=== PATIENT | female | born 1950 | race Caucasian/White ===

== ENCOUNTER 2017-07-15 21:28 | Inpatient (IN) ==
[2017-07-15] MEDS ORDERED: hydrALAZINE 20 MG/1 ML VIAL IV STA (22:16)
[2017-07-15] MEDS ORDERED: fentaNYL 100 MCG/2 ML VIAL IV STA (22:16)
[2017-07-15] MEDS ORDERED: ALBUTEROL/IPRATROPIUM 3 ML NEB RESP TX STA (22:16)
[2017-07-15] MEDS ORDERED: ONDANSETRON 4 MG/2 ML VIAL IV STA (22:16)
[2017-07-15] MEDS ORDERED: methylPREDNISolone SOD SUC 125 MG/2 ML VIAL IV STA (22:16)
[2017-07-15 23:02] LABS: Basophils # 0.1 10*3/uL (0.0-0.2); Basophils % 0.7 % (0.0-0.8); Eosinophils # 0.1 10*3/uL (0.0-0.87); Eosinophils % 0.6 % (0.00-10.9); Hematocrit 40.9 VOL% (35.7-47.0); Hemoglobin 14.2 GM/DL (12.0-16.0); Immature Granulocytes % 0.4 %; Immature Granulocytes Absolute 0.03 #; Lymphocytes # 1.8 10*3/uL (1.4-4.0); Lymphocytes % 22.2 % (21.3-54.2); Mean Corpuscular HGB Conc 34.7 GM/DL (32-36); Mean Corpuscular Hemoglobin 31 PG (27-34); Mean Corpuscular Volume 89.3 FL (87-102); Mean Platelet Volume 10.6 FL (9.6-12.0); Monocytes # 0.5 10*3/uL (0.11-0.8); Monocytes % 5.7 % (1.7-12.7); Neutrophils # 5.8 10*3/uL (1.4-7.4); Neutrophils % 70.4 % (38.7-73.9); Platelet Count 209 T/CUMM (130-400); Red Blood Count 4.58 MC/CUMM (3.8-5.5); Red Cell Distribution Width 13.1 % (9.3-17.3); White Blood Count 8.2 T/CUMM (4-12)
[2017-07-15 23:10] LABS: INR 0.9
[2017-07-15] MEDS ORDERED: MEPERIDINE 50 MG/1 ML VIAL ONE (23:40)
[2017-07-15 23:44] LABS: Calcium 9.6 MG/DL (8.5-10.1)
[2017-07-15 23:45] LABS: Alanine Aminotransferase 22 U/L (13-56); Albumin 4.1 G/DL (3.4-5.0); Alkaline Phosphatase 105 U/L (45-117); Aspartate Amino Transferase 19 U/L (0-37); Bilirubin,Total 0.85 MG/DL (0.2-1.0); Blood Urea Nitrogen 6 MG/DL (7-18); Glucose 83 MG/DL (74-106); Osmolality,Calculated 269.8 MOS/KG (273-304); Sodium 137 MMOL/L (136-145); Total Protein 8.3 G/DL (6.4-8.3)
[2017-07-16 00:14] LABS: Sedimentation Rate-Westergren 38 MM/HR (0-30)
[2017-07-16] MEDS ORDERED: MEPERIDINE 50 MG/1 ML VIAL IV STA (01:08)
[2017-07-16] MEDS ORDERED: ONDANSETRON 4 MG/2 ML VIAL IV STA (01:08)
[2017-07-16] MEDS ORDERED: LACTULOSE 20 GM/30 ML UDCUP PO PRN (02:05)
[2017-07-16] MEDS ORDERED: ONDANSETRON 4 MG/2 ML VIAL IV PRN (02:05)
[2017-07-16] MEDS ORDERED: ALBUTEROL/IPRATROPIUM 3 ML NEB RESP TX PRN (02:05)
[2017-07-16] MEDS ORDERED: ACETAMINOPHEN 325 MG TABLET PO PRN (02:05)
[2017-07-16] MEDS ORDERED: ALBUTEROL 2.5 MG/3 ML NEB RESP TX PRN (02:05)
[2017-07-16] MEDS ORDERED: MECLIZINE 25 MG TABLET PO PRN (02:05)
[2017-07-16] MEDS ORDERED: MEPERIDINE 50 MG/1 ML VIAL IV PRN (02:05)
[2017-07-16] MEDS ORDERED: LEVOFLOXACIN INJ 500 MG in PREMIX 1 EACH IV SCH (03:00)
[2017-07-16] MEDS: oxyCODONE/ACETAMINOPHEN 5-325 MG TABLET PO PRN ×2 (03:02→08:40)
[2017-07-16] MEDS: SODIUM CHLORIDE 0.9% 1,000 ML IV SCH (03:13)
[2017-07-16] MEDS: PSEUDOEPHEDRINE 30 MG TABLET PO SCH (08:39)
[2017-07-16] MEDS: methylPREDNISolone SOD SUC 40 MG/1 ML VIAL IV SCH ×2 (08:41→17:38)
[2017-07-16] MEDS: ENOXAPARIN 40 MG/0.4 ML SYRINGE SUBCUT SCH (08:41)
[2017-07-16] MEDS: PANTOPRAZOLE 40 MG TABLET PO SCH (08:48)
[2017-07-16] MEDS: DOCUSATE SODIUM 100 MG CAPSULE PO SCH ×2 (08:49→21:01)
[2017-07-16] MEDS ORDERED: LORATADINE 10 MG TABLET PO SCH (09:00)
[2017-07-16 09:06] LABS: Basophils % 0.3 % (0.0-0.8); Hematocrit 37.5 VOL% (35.7-47.0); Hemoglobin 13.5 GM/DL (12.0-16.0); Immature Granulocytes % 0.6 %; Immature Granulocytes Absolute 0.05 #; Lymphocytes # 0.7 10*3/uL (1.4-4.0); Lymphocytes % 7.5 % (21.3-54.2); Mean Corpuscular Hemoglobin 32 PG (27-34); Mean Corpuscular Volume 87.4 FL (87-102); Mean Platelet Volume 11.1 FL (9.6-12.0); Monocytes # 0.1 10*3/uL (0.11-0.8); Monocytes % 0.7 % (1.7-12.7); Neutrophils # 7.9 10*3/uL (1.4-7.4); Neutrophils % 90.9 % (38.7-73.9); Platelet Count 207 T/CUMM (130-400); Red Blood Count 4.29 MC/CUMM (3.8-5.5); Red Cell Distribution Width 13.3 % (9.3-17.3); White Blood Count 8.7 T/CUMM (4-12)
[2017-07-16 09:36] LABS: Band Neutrophils 1 % (0-10); Eosinophils 1 % (0-10); Hypochromasia Slight; Lymphocytes 5 % (20-55); Platelet Estimate Adequate; Segmented Neutrophils 92 % (50-85); Total Cells Counted 100
[2017-07-16 09:46] LABS: Albumin 3.5 G/DL (3.4-5.0); Bilirubin,Total 0.5 MG/DL (0.2-1.0); Calcium 8.9 MG/DL (8.5-10.1); Osmolality,Calculated 276.5 MOS/KG (273-304); Potassium 3.9 MMOL/L (3.5-5.1); Risk Ratio 4.82; Total Protein 7.6 G/DL (6.4-8.3); VLDL CHOLESTEROL 16.2 MG/DL
[2017-07-16] MEDS ORDERED: cloNIDine 0.1 MG TABLET PO SCH (12:00)
[2017-07-16] MEDS: ALBUTEROL/IPRATROPIUM 3 ML NEB RESP TX SCH ×2 (12:44→19:09)
[2017-07-16] MEDS: BUDESONIDE 0.25 MG/2 ML NEB RESP TX SCH (12:44)
[2017-07-16] MEDS: KETOROLAC 15 MG/1 ML VIAL IV SCH ×2 (13:15→17:40)
[2017-07-16] MEDS: LIDOCAINE 5% PATCH TRANSDERM SCH (13:15)
[2017-07-16] MEDS: NICOTINE 21 MG/24 HR PATCH TRANSDERM SCH (13:15)
[2017-07-16] MEDS: CLINDAMYCIN INJ 300 MG in PREMIX 1 EACH IV SCH ×2 (13:17→17:42)
[2017-07-16] MEDS: AZITHROMYCIN INJ 250 MG in SODIUM CHLORIDE 0.9% 250 ML IV SCH (15:04)
[2017-07-16] MEDS ORDERED: KETOROLAC 15 MG/1 ML VIAL IV ONE (21:00)
[2017-07-16] MEDS: cloNIDine 0.1 MG TABLET PO SCH (21:04)
[2017-07-17] MEDS: CLINDAMYCIN INJ 300 MG in PREMIX 1 EACH IV SCH ×4 (00:53→18:40)
[2017-07-17] MEDS: ALBUTEROL/IPRATROPIUM 3 ML NEB RESP TX SCH ×4 (02:30→19:17)
[2017-07-17] MEDS: KETOROLAC 15 MG/1 ML VIAL IV SCH ×4 (03:02→20:27)
[2017-07-17] MEDS: methylPREDNISolone SOD SUC 40 MG/1 ML VIAL IV SCH ×3 (03:02→17:18)
[2017-07-17] MEDS: SODIUM CHLORIDE 0.9% 1,000 ML IV SCH (03:03)
[2017-07-17 05:59] LABS: Calcium 8.5 MG/DL (8.5-10.1); Osmolality,Calculated 270.1 MOS/KG (273-304)
[2017-07-17] MEDS: BUDESONIDE 0.25 MG/2 ML NEB RESP TX SCH (07:10)
[2017-07-17] MEDS: oxyCODONE/ACETAMINOPHEN 5-325 MG TABLET PO PRN (07:52)
[2017-07-17] MEDS: PANTOPRAZOLE 40 MG TABLET PO SCH (09:34)
[2017-07-17] MEDS: DOCUSATE SODIUM 100 MG CAPSULE PO SCH ×2 (09:35→20:26)
[2017-07-17] MEDS: LORATADINE 10 MG TABLET PO SCH (09:35)
[2017-07-17] MEDS: cloNIDine 0.1 MG TABLET PO SCH ×3 (09:35→20:26)
[2017-07-17] MEDS: NICOTINE 21 MG/24 HR PATCH TRANSDERM SCH (09:35)
[2017-07-17] MEDS: LIDOCAINE 5% PATCH TRANSDERM SCH (09:36)
[2017-07-17] MEDS: ENOXAPARIN 40 MG/0.4 ML SYRINGE SUBCUT SCH (09:37)
[2017-07-17] MEDS: PSEUDOEPHEDRINE 30 MG TABLET PO SCH ×3 (10:22→20:31)
[2017-07-17] MEDS ORDERED: TRIAMCINOLONE ACETONIDE 40 MG/1 ML VIAL MISC INJ ONE (11:17)
[2017-07-17] MEDS ORDERED: LIDOCAINE 1% 20 ML VIAL MISC INJ ONE (11:18)
[2017-07-17] MEDS ORDERED: BUPIVACAINE 0.25% 50 ML VIAL MISC INJ ONE (11:20)
[2017-07-17] MEDS ORDERED: DEXAMETHASONE 10 MG/1 ML VIAL ONE (11:51)
[2017-07-17] MEDS: AZITHROMYCIN INJ 250 MG in SODIUM CHLORIDE 0.9% 250 ML IV SCH (14:32)
[2017-07-17] MEDS ORDERED: ZALEPLON 5 MG CAPSULE PO ONE (21:00)
[2017-07-18] MEDS: methylPREDNISolone SOD SUC 40 MG/1 ML VIAL IV SCH ×2 (00:01→10:19)
[2017-07-18] MEDS: CLINDAMYCIN INJ 300 MG in PREMIX 1 EACH IV SCH ×3 (00:03→11:57)
[2017-07-18] MEDS: ALBUTEROL/IPRATROPIUM 3 ML NEB RESP TX SCH ×3 (00:17→14:00)
[2017-07-18] MEDS: SODIUM CHLORIDE 0.9% 1,000 ML IV SCH (01:11)
[2017-07-18] MEDS: KETOROLAC 15 MG/1 ML VIAL IV SCH ×2 (03:36→10:22)
[2017-07-18] MEDS: PSEUDOEPHEDRINE 30 MG TABLET PO SCH ×2 (03:38→10:37)
[2017-07-18] MEDS: BUDESONIDE 0.25 MG/2 ML NEB RESP TX SCH (07:05)
[2017-07-18] MEDS ORDERED: FLUCONAZOLE 150 MG TABLET PO ONE (08:55)
[2017-07-18] MEDS ORDERED: oxyCODONE/ACETAMINOPHEN 5-325 MG TABLET PO PRN (08:58)
[2017-07-18] MEDS ORDERED: CLORAZEPATE 7.5 MG TABLET PO SCH (09:00)
[2017-07-18] MEDS ORDERED: SERTRALINE 50 MG TABLET PO SCH (09:00)
[2017-07-18] MEDS: PANTOPRAZOLE 40 MG TABLET PO SCH (10:10)
[2017-07-18] MEDS: LORATADINE 10 MG TABLET PO SCH (10:10)
[2017-07-18] MEDS: DOCUSATE SODIUM 100 MG CAPSULE PO SCH (10:11)
[2017-07-18] MEDS: cloNIDine 0.1 MG TABLET PO SCH (10:11)
[2017-07-18] MEDS: NICOTINE 21 MG/24 HR PATCH TRANSDERM SCH (10:15)
[2017-07-18] MEDS: ENOXAPARIN 40 MG/0.4 ML SYRINGE SUBCUT SCH (10:27)
[2017-07-18 15:48] VITALS: BP 132/51
[2017-07-18] MEDS: AZITHROMYCIN INJ 250 MG in SODIUM CHLORIDE 0.9% 250 ML IV SCH (16:00)
[2017-07-18] MEDS: LIDOCAINE 5% PATCH TRANSDERM SCH (16:00)
== END 2017-07-18 15:35 | disposition home or self-care (01) | DRG 74 ==
LOC: N.ED 21:28 → N.EDINP 07-16 00:43 → N.4E 07-16 01:23
PROVIDERS: ADMIT Family Medicine; ATTEND Family Medicine

== ENCOUNTER 2018-02-11 05:12 | Inpatient (IN) ==
[2018-02-11 05:44] LABS: Basophils # 0.1 10*3/uL (0.0-0.2); Basophils % 0.6 % (0.0-0.8); Eosinophils # 0.1 10*3/uL (0.0-0.87); Eosinophils % 0.6 % (0.00-10.9); Hematocrit 32.2 VOL% (35.7-47.0); Hemoglobin 11.2 GM/DL (12.0-16.0); Immature Granulocytes % 0.4 %; Immature Granulocytes Absolute 0.04 #; Lymphocytes # 1.3 10*3/uL (1.4-4.0); Lymphocytes % 14.2 % (21.3-54.2); Mean Corpuscular HGB Conc 34.8 GM/DL (32-36); Mean Corpuscular Hemoglobin 31 PG (27-34); Mean Platelet Volume 10.3 FL (9.6-12.0); Monocytes # 0.7 10*3/uL (0.11-0.8); Monocytes % 7.6 % (1.7-12.7); Neutrophils # 7.2 10*3/uL (1.4-7.4); Neutrophils % 76.6 % (38.7-73.9); Platelet Count 195 T/CUMM (130-400); Red Blood Count 3.66 MC/CUMM (3.8-5.5); Red Cell Distribution Width 13.6 % (9.3-17.3); White Blood Count 9.4 T/CUMM (4-12)
[2018-02-11] MEDS ORDERED: LEVOFLOXACIN INJ 750 MG in PREMIX 1 EACH IV STA (06:09)
[2018-02-11] MEDS ORDERED: ALBUTEROL 2.5 MG/3 ML NEB RESP TX STA (06:19)
[2018-02-11 06:21] LABS: Albumin 3.7 G/DL (3.4-5.0); Calcium 8.5 MG/DL (8.5-10.1); Osmolality,Calculated 268.2 MOS/KG (273-304); Potassium 3.6 MMOL/L (3.5-5.1); Total Protein 7.7 G/DL (6.4-8.3)
[2018-02-11] MEDS ORDERED: ACETAMINOPHEN 500 MG TABLET PO STA (06:24)
[2018-02-11] MEDS ORDERED: ACETAMINOPHEN 325 MG TABLET PO PRN (06:52)
[2018-02-11] MEDS ORDERED: ALBUTEROL 2.5 MG/3 ML NEB RESP TX PRN (06:54)
[2018-02-11] MEDS ORDERED: LEVOFLOXACIN INJ 500 MG in PREMIX 1 EACH IV SCH (07:00)
[2018-02-11] MEDS ORDERED: ENOXAPARIN 40 MG/0.4 ML SYRINGE SUBCUT SCH (07:00)
[2018-02-11] MEDS: SODIUM CHLORIDE 0.45% 1,000 ML IV SCH ×3 (07:55→22:59)
[2018-02-11] MEDS: methylPREDNISolone SOD SUC 40 MG/1 ML VIAL IV SCH ×3 (07:57→23:10)
[2018-02-11] MEDS ORDERED: PROPOFOL 1,000 MG/100 ML BOTTLE IV ONE (08:29)
[2018-02-11] MEDS ORDERED: LOSARTAN 50 MG TABLET PO SCH (09:00)
[2018-02-11] MEDS ORDERED: PANTOPRAZOLE 40 MG TABLET PO SCH (09:00)
[2018-02-11] MEDS ORDERED: CLORAZEPATE 7.5 MG TABLET PO SCH (09:00)
[2018-02-11] MEDS ORDERED: AMIODARONE INJ 300 MG in DEXTROSE 5% 100 ML IV ONE (09:06)
[2018-02-11] MEDS ORDERED: AMIODARONE INJ 450 MG in DEXTROSE 5% 241 ML IV SCH ×2 (09:30→15:30)
[2018-02-11] MEDS ORDERED: AMIODARONE 450 MG/9 ML VIAL IV ONE (09:41)
[2018-02-11 09:53] LABS: ABG Base Excess -9.8 MMOL/L (-2.5-2.5); ABG HCO3 16.7 MMOL/L (20-26); ABG PCO2 30.1 MM HG (35-48); ABG PH 7.316 (7.35-7.45); ABG TCO2 13.8 MMOL/L (23-27); Allen Test Positive; Pt O2 Delivery Device Ventilator
[2018-02-11] MEDS: PROPOFOL 1,000 MG/100 ML BOTTLE IV SCH ×2 (10:00→19:53)
[2018-02-11] MEDS: DOCUSATE SODIUM 100 MG CAPSULE PO SCH ×2 (10:53→21:06)
[2018-02-11] MEDS: LORATADINE 10 MG TABLET PO SCH (11:04)
[2018-02-11] MEDS: SERTRALINE 50 MG TABLET PO SCH (11:04)
[2018-02-11] MEDS: cefTRIAXone 1,000 MG in SYRINGE 1 EACH IV SCH (11:09)
[2018-02-11] MEDS: PANTOPRAZOLE 40 MG VIAL IV SCH (11:10)
[2018-02-11 12:31] LABS: Apearance,Urine CLOUDY (Clear); Bacteria,Urine Few /HPF (Few); Bilirubin,Urine Negative (Negative); Blood, Urine Moderate mg/dL (Negative); Glucose,Urine (UA) Negative (Negative); Hyaline Casts,Urine 26 /LPF (0-3); Ketones,Urine Negative (Negative); Mucus,Urine Few /LPF (Occasional); Nitrite,Urine Negative (Negative); Protein,Urine 100 MG/DL; RBC,Urine 5 /HPF (0-4); Squamous Epithelial Cell,Urine Occasional /HPF (0-10); Urine Color Yellow (Yellow); Urine Specific Gravity 1.016 (1.001-1.035); Urine Urobilinogen < 2.0 EU/DL (0.2-1.0); WBC,Urine 7 /HPF (0-6)
[2018-02-11] MEDS ORDERED: SODIUM CHLORIDE 0.9% 500 ML IV ONE (14:56)
[2018-02-11] MEDS ORDERED: PHENYLEPHRINE DRIP 40 MG/250 ML PREMIX IV PRN (14:56)
[2018-02-11 19:13] LABS: CKMB % 9.4 %
[2018-02-11 19:20] LABS: Troponin I 48.2 NG/ML (0.00-0.045)
[2018-02-11] MEDS: ALBUTEROL/IPRATROPIUM 3 ML NEB RESP TX SCH (19:30)
[2018-02-11] MEDS: ENOXAPARIN 80 MG/0.8 ML SYRINGE SUBCUT SCH (20:35)
[2018-02-11] MEDS: CARVEDILOL 3.125 MG TABLET PO SCH (21:06)
[2018-02-11] MEDS: POTASSIUM CHLORIDE 20 MEQ/15 ML UDCUP PER TUBE PRN ×2 (21:06→23:10)
[2018-02-12] MEDS: ALBUTEROL/IPRATROPIUM 3 ML NEB RESP TX SCH ×4 (00:01→19:16)
[2018-02-12 04:37] LABS: ABG Base Excess -7.6 MMOL/L (-2.5-2.5); ABG HCO3 16.3 MMOL/L (20-26); ABG Oxygen Saturation 98.4 % (95-100); ABG PCO2 28.3 MM HG (35-48); ABG PH 7.377 (7.35-7.45); ABG PO2 145.1 MM HG (80-95); ABG TCO2 17.1 MMOL/L (23-27); Allen Test Positive; Pt O2 Delivery Device Ventilator
[2018-02-12] MEDS: PROPOFOL 1,000 MG/100 ML BOTTLE IV SCH ×4 (04:51→22:09)
[2018-02-12 05:41] LABS: Basophils % 0.1 % (0.0-0.8); Hematocrit 29.9 VOL% (35.7-47.0); Hemoglobin 10.3 GM/DL (12.0-16.0); Immature Granulocytes % 0.4 %; Immature Granulocytes Absolute 0.06 #; Lymphocytes # 1.3 10*3/uL (1.4-4.0); Lymphocytes % 9.3 % (21.3-54.2); Mean Corpuscular HGB Conc 34.4 GM/DL (32-36); Mean Corpuscular Hemoglobin 31 PG (27-34); Mean Corpuscular Volume 88.5 FL (87-102); Mean Platelet Volume 11.7 FL (9.6-12.0); Monocytes # 0.3 10*3/uL (0.11-0.8); Monocytes % 2.3 % (1.7-12.7); Neutrophils % 87.9 % (38.7-73.9); Platelet Count 170 T/CUMM (130-400); Red Blood Count 3.38 MC/CUMM (3.8-5.5); Red Cell Distribution Width 13.5 % (9.3-17.3); White Blood Count 13.7 T/CUMM (4-12)
[2018-02-12 06:05] LABS: Calcium 7.6 MG/DL (8.5-10.1); Osmolality,Calculated 265.7 MOS/KG (273-304); Potassium 3.9 MMOL/L (3.5-5.1)
[2018-02-12] MEDS ORDERED: MAGNESIUM SULF RIDER 4 GM in PREMIX 1 EACH IV PRN (06:14)
[2018-02-12 06:23] LABS: CKMB % 9.4 %
[2018-02-12 06:25] LABS: Troponin I 43.3 NG/ML (0.00-0.045)
[2018-02-12] MEDS: MAGNESIUM SULF RIDER 2 GM in PREMIX 1 EACH IV PRN ×3 (06:30→10:13)
[2018-02-12] MEDS: POTASSIUM CHLORIDE 20 MEQ/15 ML UDCUP PER TUBE PRN (06:30)
[2018-02-12] MEDS: SODIUM CHLORIDE 0.45% 1,000 ML IV SCH ×3 (07:20→23:29)
[2018-02-12] MEDS ORDERED: POTASSIUM CHLORIDE RIDER 10 MEQ in PREMIX 1 EACH IV PRN (07:46)
[2018-02-12] MEDS ORDERED: MAGNESIUM SULF RIDER 2 GM in PREMIX 1 EACH IV PRN (07:46)
[2018-02-12] MEDS: methylPREDNISolone SOD SUC 40 MG/1 ML VIAL IV SCH ×3 (08:24→22:00)
[2018-02-12] MEDS: CARVEDILOL 3.125 MG TABLET PO SCH ×2 (08:24→16:34)
[2018-02-12] MEDS: ENOXAPARIN 80 MG/0.8 ML SYRINGE SUBCUT SCH (08:25)
[2018-02-12] MEDS ORDERED: TIROFIBAN 5,000 MCG/100 ML PREMIX IV ONE (09:54)
[2018-02-12] MEDS ORDERED: TIROFIBAN 5,000 MCG/100 ML PREMIX IV SCH (09:59)
[2018-02-12] MEDS ORDERED: TICAGRELOR 90 MG TABLET ONE (10:20)
[2018-02-12] MEDS ORDERED: LIDOCAINE 1% 20 ML VIAL ONE (10:32)
[2018-02-12] MEDS: SERTRALINE 50 MG TABLET PO SCH (11:44)
[2018-02-12] MEDS: DOCUSATE SODIUM 100 MG CAPSULE PO SCH ×2 (11:44→21:37)
[2018-02-12] MEDS: LORATADINE 10 MG TABLET PO SCH (11:44)
[2018-02-12] MEDS: PANTOPRAZOLE 40 MG VIAL IV SCH (11:45)
[2018-02-12] MEDS: cefTRIAXone 1,000 MG in SYRINGE 1 EACH IV SCH (11:45)
[2018-02-12] MEDS: ATORVASTATIN 40 MG TABLET PO SCH (21:36)
[2018-02-12] MEDS: TICAGRELOR 90 MG TABLET PO SCH (21:37)
[2018-02-13] MEDS: ALBUTEROL/IPRATROPIUM 3 ML NEB RESP TX SCH ×4 (00:27→20:24)
[2018-02-13] MEDS: PROPOFOL 1,000 MG/100 ML BOTTLE IV SCH ×5 (02:45→23:55)
[2018-02-13 02:56] LABS: ABG Base Excess -6.8 MMOL/L (-2.5-2.5); ABG HCO3 18.9 MMOL/L (20-26); ABG Oxygen Saturation 99.5 % (95-100); ABG PCO2 31.6 MM HG (35-48); ABG PH 7.359 (7.35-7.45); ABG TCO2 16.3 MMOL/L (23-27); Allen Test Positive; Pt O2 Delivery Device Ventilator
[2018-02-13 05:52] LABS: Basophils % 0.1 % (0.0-0.8); Hematocrit 25.1 VOL% (35.7-47.0); Hemoglobin 8.4 GM/DL (12.0-16.0); Immature Granulocytes % 0.8 %; Immature Granulocytes Absolute 0.09 #; Mean Corpuscular HGB Conc 33.5 GM/DL (32-36); Mean Corpuscular Hemoglobin 30 PG (27-34); Mean Corpuscular Volume 88.7 FL (87-102); Mean Platelet Volume 11.4 FL (9.6-12.0); Monocytes # 0.4 10*3/uL (0.11-0.8); Monocytes % 3.9 % (1.7-12.7); Neutrophils # 9.7 10*3/uL (1.4-7.4); Neutrophils % 86.2 % (38.7-73.9); Platelet Count 183 T/CUMM (130-400); Red Blood Count 2.83 MC/CUMM (3.8-5.5); Red Cell Distribution Width 13.8 % (9.3-17.3); White Blood Count 11.3 T/CUMM (4-12)
[2018-02-13 06:10] LABS: CKMB % 6.6 %; Calcium 7.3 MG/DL (8.5-10.1); Osmolality,Calculated 263.8 MOS/KG (273-304); Risk Ratio 4.28
[2018-02-13 06:11] LABS: Troponin I 12.3 NG/ML (0.00-0.045)
[2018-02-13 06:20] LABS: Anisocytosis 2+; Platelet Estimate Normal
[2018-02-13] MEDS: methylPREDNISolone SOD SUC 40 MG/1 ML VIAL IV SCH ×3 (07:08→22:00)
[2018-02-13] MEDS: SODIUM CHLORIDE 0.45% 1,000 ML IV SCH (08:06)
[2018-02-13] MEDS ORDERED: SODIUM CHLORIDE 0.9% 1,000 ML IV PRN (08:25)
[2018-02-13] MEDS ORDERED: FUROSEMIDE 20 MG/2 ML VIAL IV ONE (08:25)
[2018-02-13] MEDS: SODIUM CHLORIDE 0.9% 1,000 ML IV SCH ×2 (08:33→21:50)
[2018-02-13] MEDS: CARVEDILOL 3.125 MG TABLET PO SCH ×2 (08:54→16:50)
[2018-02-13] MEDS: SERTRALINE 50 MG TABLET PO SCH (08:54)
[2018-02-13] MEDS: LORATADINE 10 MG TABLET PO SCH (08:54)
[2018-02-13] MEDS: DOCUSATE SODIUM 100 MG CAPSULE PO SCH ×2 (08:54→21:43)
[2018-02-13] MEDS: TICAGRELOR 90 MG TABLET PO SCH ×2 (08:54→21:43)
[2018-02-13] MEDS: PANTOPRAZOLE 40 MG VIAL IV SCH (08:55)
[2018-02-13] MEDS: cefTRIAXone 1,000 MG in SYRINGE 1 EACH IV SCH (09:00)
[2018-02-13] MEDS ORDERED: GLUCAGON 1 MG VIAL IM PRN (10:50)
[2018-02-13] MEDS ORDERED: DEXTROSE 50% 25 GM/50 ML SYRINGE IV PRN (10:50)
[2018-02-13] MEDS ORDERED: LOSARTAN 25 MG TABLET PO SCH (12:00)
[2018-02-13] MEDS: INSULIN REGULAR 100 UNIT/ML SUBCUT SCH ×2 (13:26→19:27)
[2018-02-13 17:48] LABS: Hematocrit 34.8 VOL% (35.7-47.0); Hemoglobin 11.7 GM/DL (12.0-16.0)
[2018-02-13] MEDS: ATORVASTATIN 40 MG TABLET PO SCH (21:43)
[2018-02-14] MEDS: INSULIN REGULAR 100 UNIT/ML SUBCUT SCH ×2 (00:52→05:41)
[2018-02-14] MEDS: ALBUTEROL/IPRATROPIUM 3 ML NEB RESP TX SCH ×4 (01:24→19:50)
[2018-02-14] MEDS: PROPOFOL 1,000 MG/100 ML BOTTLE IV SCH ×2 (03:12→07:35)
[2018-02-14 03:29] LABS: ABG Base Excess -4.8 MMOL/L (-2.5-2.5); ABG HCO3 20.5 MMOL/L (20-26); ABG Oxygen Saturation 98.8 % (95-100); ABG PCO2 34.6 MM HG (35-48); ABG PH 7.367 (7.35-7.45); ABG TCO2 17.7 MMOL/L (23-27); Allen Test Positive; Pt O2 Delivery Device Ventilator
[2018-02-14] MEDS: SODIUM CHLORIDE 0.9% 1,000 ML IV SCH (03:30)
[2018-02-14 04:52] LABS: Basophils % 0.1 % (0.0-0.8); Hematocrit 34.5 VOL% (35.7-47.0); Hemoglobin 11.4 GM/DL (12.0-16.0); Immature Granulocytes % 1.5 %; Immature Granulocytes Absolute 0.15 #; Lymphocytes # 1.2 10*3/uL (1.4-4.0); Lymphocytes % 12.4 % (21.3-54.2); Mean Corpuscular Hemoglobin 29 PG (27-34); Mean Corpuscular Volume 86.9 FL (87-102); Mean Platelet Volume 10.7 FL (9.6-12.0); Monocytes # 0.5 10*3/uL (0.11-0.8); Monocytes % 4.6 % (1.7-12.7); Neutrophils # 7.9 10*3/uL (1.4-7.4); Neutrophils % 81.4 % (38.7-73.9); Platelet Count 198 T/CUMM (130-400); Red Blood Count 3.97 MC/CUMM (3.8-5.5); Red Cell Distribution Width 15.4 % (9.3-17.3); White Blood Count 9.7 T/CUMM (4-12)
[2018-02-14 05:22] LABS: Calcium 7.3 MG/DL (8.5-10.1); Potassium 3.8 MMOL/L (3.5-5.1)
[2018-02-14 05:27] LABS: Prealbumin 16.2 MG/DL (20-40)
[2018-02-14 05:50] LABS: Band Neutrophils 2 % (0-10); Hypochromasia 1+; Lymphocytes 12 % (20-55); Platelet Estimate Adequate; Segmented Neutrophils 80 % (50-85); Total Cells Counted 100
[2018-02-14] MEDS: methylPREDNISolone SOD SUC 40 MG/1 ML VIAL IV SCH ×3 (06:08→22:30)
[2018-02-14] MEDS: POTASSIUM CHLORIDE RIDER 10 MEQ in PREMIX 1 EACH IV PRN ×2 (06:12→08:52)
[2018-02-14] MEDS ORDERED: FUROSEMIDE 40 MG/4 ML VIAL IV ONE (07:18)
[2018-02-14] MEDS: PANTOPRAZOLE 40 MG VIAL IV SCH (08:48)
[2018-02-14] MEDS: SERTRALINE 50 MG TABLET PO SCH (08:50)
[2018-02-14] MEDS: CARVEDILOL 3.125 MG TABLET PO SCH ×2 (08:51→17:07)
[2018-02-14] MEDS: LORATADINE 10 MG TABLET PO SCH (08:51)
[2018-02-14] MEDS: DOCUSATE SODIUM 100 MG CAPSULE PO SCH ×2 (08:52→20:02)
[2018-02-14] MEDS: NICOTINE 7 MG/24 HR PATCH TRANSDERM SCH (08:52)
[2018-02-14] MEDS: TICAGRELOR 90 MG TABLET PO SCH ×2 (08:52→20:01)
[2018-02-14] MEDS ORDERED: LOSARTAN 50 MG TABLET PO SCH (09:00)
[2018-02-14] MEDS: cefTRIAXone 1,000 MG in SYRINGE 1 EACH IV SCH (09:46)
[2018-02-14] MEDS: ONDANSETRON 4 MG/2 ML VIAL IV PRN ×2 (10:10→20:02)
[2018-02-14] MEDS ORDERED: cloNIDine 0.1 MG TABLET PO PRN (11:19)
[2018-02-14] MEDS ORDERED: MORPHINE 4 MG/1 ML VIAL IV PRN ×2 (12:31→12:33)
[2018-02-14] MEDS ORDERED: KETOROLAC 30 MG/1 ML VIAL IV ONE (12:34)
[2018-02-14] MEDS ORDERED: amLODIPine 5 MG TABLET PO SCH (13:00)
[2018-02-14 13:15] LABS: CKMB % 3.3 %
[2018-02-14 13:16] LABS: Troponin I 7.09 NG/ML (0.00-0.045)
[2018-02-14] MEDS ORDERED: METOPROLOL TARTRATE 5 MG/5 ML VIAL IV ONE (15:43)
[2018-02-14] MEDS ORDERED: LIDOCAINE 5% PATCH TRANSDERM SCH (15:58)
[2018-02-14] MEDS: LIDOCAINE 5% PATCH TRANSDERM SCH (16:20)
[2018-02-14] MEDS ORDERED: LORazepam 2 MG/1 ML VIAL IV PRN (18:18)
[2018-02-14] MEDS: LOSARTAN 50 MG TABLET PO SCH ×2 (18:19→20:02)
[2018-02-14] MEDS: ATORVASTATIN 40 MG TABLET PO SCH (20:01)
[2018-02-14] MEDS: cloNIDine 0.1 MG TABLET PO PRN ×3 (20:01→23:45)
[2018-02-14] MEDS: CLORAZEPATE 7.5 MG TABLET PO SCH (21:47)
[2018-02-14] MEDS: HYDROmorphone 2 MG/1 ML VIAL IV PRN (22:38)
[2018-02-15] MEDS: LORazepam 2 MG/1 ML VIAL IV PRN (00:21)
[2018-02-15] MEDS: ALBUTEROL/IPRATROPIUM 3 ML NEB RESP TX SCH ×4 (01:17→19:32)
[2018-02-15] MEDS: ONDANSETRON 4 MG/2 ML VIAL IV PRN ×3 (03:30→16:53)
[2018-02-15 05:57] LABS: Basophils % 0.3 % (0.0-0.8); Eosinophils % 0.1 % (0.00-10.9); Hematocrit 37.2 VOL% (35.7-47.0); Hemoglobin 12.3 GM/DL (12.0-16.0); Immature Granulocytes Absolute 0.21 #; Lymphocytes # 1.5 10*3/uL (1.4-4.0); Lymphocytes % 13.5 % (21.3-54.2); Mean Corpuscular HGB Conc 33.1 GM/DL (32-36); Mean Corpuscular Hemoglobin 29 PG (27-34); Mean Corpuscular Volume 87.7 FL (87-102); Mean Platelet Volume 10.5 FL (9.6-12.0); Monocytes # 0.4 10*3/uL (0.11-0.8); Neutrophils # 8.6 10*3/uL (1.4-7.4); Neutrophils % 80.1 % (38.7-73.9); Platelet Count 211 T/CUMM (130-400); Red Blood Count 4.24 MC/CUMM (3.8-5.5); Red Cell Distribution Width 15.6 % (9.3-17.3); White Blood Count 10.8 T/CUMM (4-12)
[2018-02-15 06:11] LABS: Calcium 7.9 MG/DL (8.5-10.1); Osmolality,Calculated 275.8 MOS/KG (273-304)
[2018-02-15] MEDS: methylPREDNISolone SOD SUC 40 MG/1 ML VIAL IV SCH ×3 (06:19→20:17)
[2018-02-15 07:25] LABS: Hypochromasia 1+; Platelet Estimate Adequate
[2018-02-15] MEDS: PANTOPRAZOLE 40 MG VIAL IV SCH (08:17)
[2018-02-15] MEDS: CLORAZEPATE 7.5 MG TABLET PO SCH ×2 (08:18→20:16)
[2018-02-15] MEDS: amLODIPine 10 MG TABLET PO SCH (08:19)
[2018-02-15] MEDS: SERTRALINE 50 MG TABLET PO SCH (08:20)
[2018-02-15] MEDS: LORATADINE 10 MG TABLET PO SCH (08:20)
[2018-02-15] MEDS: CARVEDILOL 3.125 MG TABLET PO SCH ×2 (08:20→16:53)
[2018-02-15] MEDS: TICAGRELOR 90 MG TABLET PO SCH ×2 (08:20→20:16)
[2018-02-15] MEDS: LOSARTAN 50 MG TABLET PO SCH ×2 (08:20→20:16)
[2018-02-15] MEDS: LIDOCAINE 5% PATCH TRANSDERM SCH (08:21)
[2018-02-15] MEDS: NICOTINE 7 MG/24 HR PATCH TRANSDERM SCH (08:21)
[2018-02-15] MEDS: DOCUSATE SODIUM 100 MG CAPSULE PO SCH ×2 (08:50→20:17)
[2018-02-15] MEDS ORDERED: LIDOCAINE 5% PATCH TRANSDERM SCH (09:00)
[2018-02-15] MEDS: HYDROmorphone 2 MG/1 ML VIAL IV PRN (09:37)
[2018-02-15] MEDS: cefTRIAXone 1,000 MG in SYRINGE 1 EACH IV SCH (10:38)
[2018-02-15] MEDS: ATORVASTATIN 40 MG TABLET PO SCH (20:16)
[2018-02-16] MEDS: ALBUTEROL/IPRATROPIUM 3 ML NEB RESP TX SCH ×4 (00:15→19:33)
[2018-02-16] MEDS ORDERED: FUROSEMIDE 40 MG/4 ML VIAL IV ONE (07:41)
[2018-02-16] MEDS: cloNIDine 0.1 MG TABLET PO PRN (07:50)
[2018-02-16] MEDS: ONDANSETRON 4 MG/2 ML VIAL IV PRN (08:49)
[2018-02-16] MEDS: BUDESONIDE/FORMOTEROL 160-4.5 INHALER 6 GM INH SCH ×2 (09:40→20:41)
[2018-02-16] MEDS: CLORAZEPATE 7.5 MG TABLET PO SCH ×2 (09:40→20:39)
[2018-02-16] MEDS: LORATADINE 10 MG TABLET PO SCH (09:42)
[2018-02-16] MEDS: LOSARTAN 50 MG TABLET PO SCH ×2 (09:45→20:40)
[2018-02-16] MEDS: CARVEDILOL 6.25 MG TABLET PO SCH ×2 (09:46→20:40)
[2018-02-16] MEDS: amLODIPine 10 MG TABLET PO SCH (09:46)
[2018-02-16] MEDS: PRAZOSIN 1 MG CAPSULE PO SCH ×3 (09:46→20:41)
[2018-02-16] MEDS: TICAGRELOR 90 MG TABLET PO SCH ×2 (09:46→20:40)
[2018-02-16] MEDS: SERTRALINE 50 MG TABLET PO SCH (09:46)
[2018-02-16] MEDS: LIDOCAINE 5% PATCH TRANSDERM SCH (09:47)
[2018-02-16] MEDS: NICOTINE 7 MG/24 HR PATCH TRANSDERM SCH (09:48)
[2018-02-16] MEDS: DOCUSATE SODIUM 100 MG CAPSULE PO SCH ×2 (09:51→20:40)
[2018-02-16] MEDS: PANTOPRAZOLE 40 MG VIAL IV SCH (09:51)
[2018-02-16] MEDS: cefTRIAXone 1,000 MG in SYRINGE 1 EACH IV SCH (09:57)
[2018-02-16] MEDS: ATORVASTATIN 40 MG TABLET PO SCH (20:40)
[2018-02-17] MEDS: ALBUTEROL/IPRATROPIUM 3 ML NEB RESP TX SCH ×4 (00:41→19:01)
[2018-02-17 03:13] LABS: Basophils % 0.3 % (0.0-0.8); Eosinophils # 0.1 10*3/uL (0.0-0.87); Eosinophils % 1.3 % (0.00-10.9); Hematocrit 37.6 VOL% (35.7-47.0); Hemoglobin 12.7 GM/DL (12.0-16.0); Immature Granulocytes % 3.6 %; Immature Granulocytes Absolute 0.34 #; Lymphocytes # 1.7 10*3/uL (1.4-4.0); Lymphocytes % 18.6 % (21.3-54.2); Mean Corpuscular HGB Conc 33.8 GM/DL (32-36); Mean Corpuscular Hemoglobin 29 PG (27-34); Mean Corpuscular Volume 85.8 FL (87-102); Mean Platelet Volume 10.1 FL (9.6-12.0); Monocytes # 0.6 10*3/uL (0.11-0.8); Monocytes % 6.9 % (1.7-12.7); Neutrophils # 6.5 10*3/uL (1.4-7.4); Neutrophils % 69.3 % (38.7-73.9); Platelet Count 236 T/CUMM (130-400); Red Blood Count 4.38 MC/CUMM (3.8-5.5); Red Cell Distribution Width 14.5 % (9.3-17.3); White Blood Count 9.3 T/CUMM (4-12)
[2018-02-17 03:33] LABS: Calcium 8.3 MG/DL (8.5-10.1); Osmolality,Calculated 276.7 MOS/KG (273-304); Potassium 3.2 MMOL/L (3.5-5.1)
[2018-02-17] MEDS: POTASSIUM CHLORIDE RIDER 10 MEQ in PREMIX 1 EACH IV PRN ×3 (04:12→06:40)
[2018-02-17] MEDS: ONDANSETRON 4 MG/2 ML VIAL IV PRN (04:36)
[2018-02-17] MEDS: HYDROmorphone 2 MG/1 ML VIAL IV PRN (04:36)
[2018-02-17] MEDS: TICAGRELOR 90 MG TABLET PO SCH ×2 (08:32→21:52)
[2018-02-17] MEDS: SERTRALINE 50 MG TABLET PO SCH (08:32)
[2018-02-17] MEDS: LORATADINE 10 MG TABLET PO SCH (08:32)
[2018-02-17] MEDS: LOSARTAN 50 MG TABLET PO SCH ×2 (08:33→21:52)
[2018-02-17] MEDS: NICOTINE 7 MG/24 HR PATCH TRANSDERM SCH (08:33)
[2018-02-17] MEDS: LIDOCAINE 5% PATCH TRANSDERM SCH ×2 (08:33→08:43)
[2018-02-17] MEDS: CLORAZEPATE 7.5 MG TABLET PO SCH ×2 (08:33→21:52)
[2018-02-17] MEDS: PRAZOSIN 1 MG CAPSULE PO SCH ×3 (08:34→21:54)
[2018-02-17] MEDS: PANTOPRAZOLE 40 MG VIAL IV SCH (08:34)
[2018-02-17] MEDS: amLODIPine 10 MG TABLET PO SCH (08:34)
[2018-02-17] MEDS: DOCUSATE SODIUM 100 MG CAPSULE PO SCH ×2 (08:34→21:54)
[2018-02-17] MEDS: CARVEDILOL 6.25 MG TABLET PO SCH ×2 (08:34→21:52)
[2018-02-17] MEDS: BUDESONIDE/FORMOTEROL 160-4.5 INHALER 6 GM INH SCH ×2 (08:40→21:58)
[2018-02-17] MEDS: cefTRIAXone 1,000 MG in SYRINGE 1 EACH IV SCH (09:38)
[2018-02-17] MEDS: LORazepam 2 MG/1 ML VIAL IV PRN (11:26)
[2018-02-17] MEDS: cloNIDine 0.1 MG TABLET PO PRN (13:14)
[2018-02-17] MEDS: ATORVASTATIN 40 MG TABLET PO SCH (21:52)
[2018-02-18] MEDS: ALBUTEROL/IPRATROPIUM 3 ML NEB RESP TX SCH ×4 (00:29→19:41)
[2018-02-18 03:52] LABS: Basophils % 0.2 % (0.0-0.8); Eosinophils # 0.1 10*3/uL (0.0-0.87); Eosinophils % 1.5 % (0.00-10.9); Hematocrit 35.7 VOL% (35.7-47.0); Hemoglobin 11.9 GM/DL (12.0-16.0); Immature Granulocytes % 2.1 %; Immature Granulocytes Absolute 0.18 #; Lymphocytes # 1.3 10*3/uL (1.4-4.0); Lymphocytes % 15.3 % (21.3-54.2); Mean Corpuscular HGB Conc 33.3 GM/DL (32-36); Mean Corpuscular Hemoglobin 29 PG (27-34); Mean Corpuscular Volume 86.2 FL (87-102); Mean Platelet Volume 9.9 FL (9.6-12.0); Monocytes # 0.7 10*3/uL (0.11-0.8); Monocytes % 8.6 % (1.7-12.7); Neutrophils # 6.1 10*3/uL (1.4-7.4); Neutrophils % 72.3 % (38.7-73.9); Platelet Count 233 T/CUMM (130-400); Red Blood Count 4.14 MC/CUMM (3.8-5.5); Red Cell Distribution Width 14.4 % (9.3-17.3); White Blood Count 8.5 T/CUMM (4-12)
[2018-02-18 04:17] LABS: Calcium 7.6 MG/DL (8.5-10.1); Potassium 3.2 MMOL/L (3.5-5.1)
[2018-02-18] MEDS: POTASSIUM CHLORIDE RIDER 10 MEQ in PREMIX 1 EACH IV PRN (06:31)
[2018-02-18] MEDS: POTASSIUM CHLORIDE 20 MEQ/15 ML UDCUP PER TUBE PRN ×3 (06:43→11:04)
[2018-02-18] MEDS: LORATADINE 10 MG TABLET PO SCH (08:33)
[2018-02-18] MEDS: CLORAZEPATE 7.5 MG TABLET PO SCH ×2 (08:33→20:48)
[2018-02-18] MEDS: DOCUSATE SODIUM 100 MG CAPSULE PO SCH ×3 (08:33→20:45)
[2018-02-18] MEDS: SERTRALINE 50 MG TABLET PO SCH (08:33)
[2018-02-18] MEDS: TICAGRELOR 90 MG TABLET PO SCH ×2 (08:34→20:47)
[2018-02-18] MEDS: PRAZOSIN 1 MG CAPSULE PO SCH ×3 (08:35→20:46)
[2018-02-18] MEDS: PANTOPRAZOLE 40 MG VIAL IV SCH (08:35)
[2018-02-18] MEDS: BUDESONIDE/FORMOTEROL 160-4.5 INHALER 6 GM INH SCH ×2 (08:36→20:48)
[2018-02-18] MEDS: LOSARTAN 50 MG TABLET PO SCH ×2 (10:35→20:45)
[2018-02-18] MEDS: LIDOCAINE 5% PATCH TRANSDERM SCH (10:36)
[2018-02-18] MEDS: amLODIPine 10 MG TABLET PO SCH (10:36)
[2018-02-18] MEDS: cefTRIAXone 1,000 MG in SYRINGE 1 EACH IV SCH (11:04)
[2018-02-18] MEDS: NICOTINE 7 MG/24 HR PATCH TRANSDERM SCH (11:04)
[2018-02-18] MEDS: CARVEDILOL 6.25 MG TABLET PO SCH ×2 (11:43→20:46)
[2018-02-18] MEDS: ONDANSETRON 4 MG/2 ML VIAL IV PRN (16:48)
[2018-02-18] MEDS: ATORVASTATIN 40 MG TABLET PO SCH (20:48)
[2018-02-19] MEDS: ALBUTEROL/IPRATROPIUM 3 ML NEB RESP TX SCH ×4 (01:33→19:51)
[2018-02-19] MEDS: ONDANSETRON 4 MG/2 ML VIAL IV PRN ×3 (03:18→20:42)
[2018-02-19 03:59] LABS: Basophils % 0.2 % (0.0-0.8); Eosinophils # 0.2 10*3/uL (0.0-0.87); Eosinophils % 2.4 % (0.00-10.9); Hematocrit 35.7 VOL% (35.7-47.0); Hemoglobin 11.7 GM/DL (12.0-16.0); Immature Granulocytes % 2.3 %; Lymphocytes # 1.3 10*3/uL (1.4-4.0); Lymphocytes % 15.2 % (21.3-54.2); Mean Corpuscular HGB Conc 32.8 GM/DL (32-36); Mean Corpuscular Hemoglobin 29 PG (27-34); Mean Corpuscular Volume 87.3 FL (87-102); Mean Platelet Volume 10.1 FL (9.6-12.0); Monocytes # 0.8 10*3/uL (0.11-0.8); Monocytes % 8.6 % (1.7-12.7); Neutrophils # 6.3 10*3/uL (1.4-7.4); Neutrophils % 71.3 % (38.7-73.9); Platelet Count 230 T/CUMM (130-400); Red Blood Count 4.09 MC/CUMM (3.8-5.5); Red Cell Distribution Width 14.3 % (9.3-17.3); White Blood Count 8.8 T/CUMM (4-12)
[2018-02-19] MEDS: SERTRALINE 50 MG TABLET PO SCH (08:16)
[2018-02-19] MEDS: amLODIPine 5 MG TABLET PO SCH (08:16)
[2018-02-19] MEDS: LORATADINE 10 MG TABLET PO SCH (08:16)
[2018-02-19] MEDS: TICAGRELOR 90 MG TABLET PO SCH ×2 (08:17→20:37)
[2018-02-19] MEDS: LOSARTAN 50 MG TABLET PO SCH ×2 (08:17→20:38)
[2018-02-19] MEDS: DOCUSATE SODIUM 100 MG CAPSULE PO SCH ×2 (08:17→20:38)
[2018-02-19] MEDS: LIDOCAINE 5% PATCH TRANSDERM SCH (08:17)
[2018-02-19] MEDS: PANTOPRAZOLE 40 MG VIAL IV SCH (08:17)
[2018-02-19] MEDS: CARVEDILOL 6.25 MG TABLET PO SCH ×2 (08:17→20:37)
[2018-02-19] MEDS: PRAZOSIN 1 MG CAPSULE PO SCH ×3 (08:17→20:39)
[2018-02-19] MEDS: CLORAZEPATE 7.5 MG TABLET PO SCH ×2 (08:17→20:37)
[2018-02-19] MEDS: BUDESONIDE/FORMOTEROL 160-4.5 INHALER 6 GM INH SCH ×2 (08:18→20:42)
[2018-02-19] MEDS: NICOTINE 7 MG/24 HR PATCH TRANSDERM SCH (09:15)
[2018-02-19] MEDS: DESITIN 4OZ/NYSTATIN 15 GRAM MIXTURE PASTE TOP SCH ×2 (13:21→20:41)
[2018-02-19] MEDS ORDERED: NITROGLYCERIN SL 0.4 MG TABLET SL PRN (13:23)
[2018-02-19] MEDS: ATORVASTATIN 40 MG TABLET PO SCH (20:37)
[2018-02-20] MEDS: ALBUTEROL/IPRATROPIUM 3 ML NEB RESP TX SCH ×2 (00:34→07:10)
[2018-02-20 04:24] LABS: Basophils % 0.1 % (0.0-0.8); Eosinophils # 0.2 10*3/uL (0.0-0.87); Hematocrit 33.4 VOL% (35.7-47.0); Immature Granulocytes % 1.8 %; Immature Granulocytes Absolute 0.16 #; Lymphocytes # 1.5 10*3/uL (1.4-4.0); Lymphocytes % 16.2 % (21.3-54.2); Mean Corpuscular HGB Conc 32.9 GM/DL (32-36); Mean Corpuscular Hemoglobin 29 PG (27-34); Mean Platelet Volume 9.9 FL (9.6-12.0); Monocytes # 0.7 10*3/uL (0.11-0.8); Neutrophils # 6.5 10*3/uL (1.4-7.4); Neutrophils % 71.9 % (38.7-73.9); Platelet Count 209 T/CUMM (130-400); Red Blood Count 3.84 MC/CUMM (3.8-5.5); Red Cell Distribution Width 14.3 % (9.3-17.3)
[2018-02-20] MEDS: CARVEDILOL 6.25 MG TABLET PO SCH (09:09)
[2018-02-20] MEDS: CLORAZEPATE 7.5 MG TABLET PO SCH (09:09)
[2018-02-20] MEDS: amLODIPine 5 MG TABLET PO SCH (09:09)
[2018-02-20] MEDS: PRAZOSIN 1 MG CAPSULE PO SCH (09:09)
[2018-02-20] MEDS: SERTRALINE 50 MG TABLET PO SCH (09:09)
[2018-02-20] MEDS: TICAGRELOR 90 MG TABLET PO SCH (09:09)
[2018-02-20] MEDS: BUDESONIDE/FORMOTEROL 160-4.5 INHALER 6 GM INH SCH (09:10)
[2018-02-20] MEDS: DESITIN 4OZ/NYSTATIN 15 GRAM MIXTURE PASTE TOP SCH (09:10)
[2018-02-20] MEDS: PANTOPRAZOLE 40 MG VIAL IV SCH (09:10)
[2018-02-20] MEDS: LIDOCAINE 5% PATCH TRANSDERM SCH ×2 (09:10→09:29)
[2018-02-20] MEDS: DOCUSATE SODIUM 100 MG CAPSULE PO SCH (09:11)
[2018-02-20] MEDS: LORATADINE 10 MG TABLET PO SCH (09:11)
[2018-02-20] MEDS: NICOTINE 7 MG/24 HR PATCH TRANSDERM SCH (09:19)
[2018-02-20] MEDS: LOSARTAN 50 MG TABLET PO SCH (09:19)
[2018-02-20 12:25] VITALS: BP 103/52
== END 2018-02-20 14:00 | DRG 246 ==
LOC: N.ED 05:12 → N.EDINP 08:18 → N.ICU 09:13 → N.TELES 02-17 09:16
PROVIDERS: ADMIT Family Medicine; ATTEND Family Medicine
PROC: CLCCHCL (ICD-10-PCS; 2018-02-12 09:15)